=== PATIENT | female | born 2000 | race Caucasian/White ===

== ENCOUNTER 2018-07-03 16:07 | Emergency (ER) | payer OTHER ==
[~2018-07-03] VITALS: Ht 170.2 cm; Wt 63.5 kg
[2018-07-03 16:20] VITALS: BP 131/71
--- NOTE | 2018-07-03 16:47 | RAD ---
Examination: ELBOW RIGHT 2V History: RIGHT ELBOW XRAY 3 VIEWS - INJURED BY HARD OBJECT Comparison/Correlation: None Findings: Total of 4 images of the right elbow were obtained. Joint spaces are normal. No acute fracture or bony destruction. Soft tissues are unremarkable. No joint effusion. No degenerative change. Impression: Normal right elbow x-ray exam. Electronically signed by: Jaylan Carlson MD (07/03/2018 4:44 PM) [id number]
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
== END 2018-07-03 17:05 | disposition home or self-care (01) ==
LOC: ER 16:07
DX: S50.01XA Contusion of right elbow, initial encounter (principal); W22.8XXA Striking against or struck by other objects, initial encounter; Y93.89 Activity, other specified; Y92.89 Other specified places as the place of occurrence of the external cause; Y99.8 Other external cause status
CPT/HCPCS: 73070; 99283

== ENCOUNTER 2018-09-05 13:33 | Emergency (ER) | payer OTHER ==
[~2018-09-05] VITALS: Ht 167.6 cm; Wt 81.6 kg
--- NOTE | 2018-09-05 14:02 | PHYS DOC ---
Past History Past Medical History: No Pertinent History Past Surgical History: No Surgical History Alcohol Use: None Drug Use: None Adult General Chief Complaint Chief Complaint: SHORTNESS OF BREATH [facility] HPI 18-year-old female presents with 2 day history of shortness of breath. The patient has known allergies and reactive airway disease. For the last several days she has had more difficulty as the pollen counts and very high. Her cough has become productive of greenish sputum. She feels that she is more short of breath the last 2 days despite using her albuterol twice a day. She uses 2 puffs. The patient has not had steroids for reactive airway disease exacerbations in the past. She's never been hospitalized. She is eating and drinking normally. She had a fever at home 2 days ago, but this is resolved. Review of Systems Review of Systems Constitutional: Fever[] Eyes: Denies change in visual acuity, redness, or eye pain [] HENT: nasal congestion [] Respiratory: Cough with shortness of breath [] Cardiovascular: No additional information not addressed in HPI [] GI: Denies abdominal pain, nausea, vomiting, bloody stools or diarrhea [] : Denies dysuria or hematuria [] Musculoskeletal: Denies back pain or joint pain [] Integument: Denies rash or skin lesions [] Neurologic: Denies headache, focal weakness or sensory changes [] Endocrine: Denies polyuria or polydipsia [] All other systems were reviewed and found to be within normal limits, except as documented in this note. Allergies Allergies Allergies Coded Allergies Type Severity Reaction Last Updated Verified No Known Drug Allergies 07/03/18 No Physical Exam Physical Exam Constitutional: Well developed, well nourished, no acute distress, non-toxic appearance. [] HENT: Normocephalic, atraumatic, bilateral external ears normal, oropharynx moist, no oral exudates, nose congested, nose ring in place. [] Eyes: PERRLA, EOMI, conjunctiva normal, no discharge. [] Neck: Normal range of motion, no tenderness, supple, no stridor. [] Cardiovascular:Heart rate regular rhythm, no murmur [] Lungs & Thorax: Coughing. Bilateral breath diminished with prolonged expiratory phase. No obvious wheezing.[] Abdomen: Bowel sounds normal, soft, no tenderness, no masses, no pulsatile masses. [] Skin: Warm, dry, no erythema, no rash. [] Back: No tenderness, no CVA tenderness. [] Extremities: No tenderness, no cyanosis, no clubbing, ROM intact, no edema. [] Neurologic: Alert and oriented X 3, normal motor function, normal sensory function, no focal deficits noted. [] Psychologic: Affect normal, judgement normal, mood normal. [] EKG EKG [] Radiology/Procedures Radiology/Procedures [] Impressions: CHEST PA LATERAL Clinical indications: chest pain since yesterday, no known injury. Shortness of breath. COMPARISON: None available. Findings: No acute lung infiltrate or pleural effusion or pulmonary edema or lung mass or pneumothorax is seen. The heart size, pulmonary vasculature, mediastinum and both ty are unremarkable. The osseous structures appear intact. Impression: No acute radiographic abnormality is seen. Electronically signed by: Charisse Olivier MD (09/05/2018 2:23 PM) [id number] DICTATED AND SIGNED BY: CHARISSE OLIVIER MD DATE: 09/05/18 1428 CC: SID ROSADO DO; PCP,UNKNOWN ~ Course & Med Decision Making Course & Med Decision Making Pertinent Labs and Imaging studies reviewed. (See chart for details) The patient's chest x-ray is negative for pneumonia. She appears to be having an exacerbation of her reactive airway disease. I have given her a duoneb treatment in the ED as well as 125 of Solu-Medrol. I will discharge her on an additional 3 days of prednisone. She is stable for discharge at this time. [] Dragon Disclaimer Dragon Disclaimer This electronic medical record was generated, in whole or in part, using a voice recognition dictation system. Departure Departure: Impression: Primary Impression: Reactive airway disease with acute exacerbation Disposition: 01 HOME, SELF-CARE Condition: STABLE Referrals: PCP,UNKNOWN (PCP) Patient Instructions: Asthma, Adult, [id number] Scripts Albuterol Sulfate (VENTOLIN HFA INHALER) 18 Gm Hfa.aer.ad 1-2 PUFF IH PRN Q4HRS PRN for FOR ASTHMA, #1 INHALER 0 Refills Please also dispense an appropriately sized spacer. Gerneric substitution of albuterol MDI is authorized. Prov: SID ROSADO DO 09/05/18 Prednisone (PREDNISONE) 10 Mg Tablet 50 MG PO DAILY for reactive airway disease for 3 Days, #15 TAB Prov: SID ROSADO DO 09/05/18 Problem Qualifiers Primary Impression: Reactive airway disease with acute exacerbation Asthma severity: mild Asthma persistence: intermittent Qualified Codes: J45.21 - Mild intermittent asthma with (acute) exacerbation SID ROSADO DO Sep 05, 2018 14:02
[2018-09-05 14:24] LABS: BASO % 1 % (0-3); EOS # 0.3 x10^3/uL (0.0-0.7); EOS % 5 % (0-3); HEMATOCRIT 41.5 % (36.0-47.0); HEMOGLOBIN 13.9 g/dL (12.0-15.5); LYMPH # 2.2 x10^3/uL (1.0-4.8); LYMPH % 32 % (24-48); MEAN CORPUSCULAR HEMOGLOBIN 30 pg (25-35); MEAN CORPUSCULAR HGB CONC 34 g/dL (31-37); MEAN CORPUSCULAR VOLUME 90 fL (79-100); MONO % 14 % (0-9); NEUT # 3.4 x10^3uL (1.8-7.7); NEUT % 49 % (31-73); PLATELET COUNT 298 x10^3/uL (140-400); RED BLOOD COUNT 4.61 x10^6/uL (3.50-5.40); RED CELL DISTRIBUTION WIDTH 13.8 % (11.5-14.5); WHITE BLOOD COUNT 6.8 x10^3/uL (4.0-11.0)
--- NOTE | 2018-09-05 14:25 | RAD ---
CHEST PA LATERAL Clinical indications: chest pain since yesterday, no known injury. Shortness of breath. COMPARISON: None available. Findings: No acute lung infiltrate or pleural effusion or pulmonary edema or lung mass or pneumothorax is seen. The heart size, pulmonary vasculature, mediastinum and both ty are unremarkable. The osseous structures appear intact. Impression: No acute radiographic abnormality is seen. Electronically signed by: Gael Olivier MD (09/05/2018 2:23 PM) [facility]
[2018-09-05] MEDS ORDERED: IPRATRPIUM/ALBUTEROL 0.5/2.5MG 3 ML NEBU. NEB ONE (14:30)
[2018-09-05] MEDS ORDERED: methylPREDNISolone SOD SUCC PF 125 MG/2 ML VIAL. IV ONE (14:30)
[2018-09-05 14:35] VITALS: BP 129/78
[2018-09-05 14:35] LABS: CALCIUM 9.3 mg/dL (8.5-10.1); CREATININE 0.8 mg/dL (0.6-1.0); GFR 91.4; TOTAL BILIRUBIN 0.3 mg/dL (0.2-1.0); TOTAL PROTEIN 8.1 g/dL (6.4-8.2)
[2018-09-05] MEDS ORDERED: PRED-220 PO (14:37)
[2018-09-05] MEDS ORDERED: ALBU2.5V8 IH (14:37)
== END 2018-09-05 14:40 | disposition home or self-care (01) ==
LOC: ER 13:33
DX: J45.21 Mild intermittent asthma with (acute) exacerbation (principal)
CPT/HCPCS: 36415; 71046; 80053; 85025; 94640; 96374; 99285; J2930; J7620

== ENCOUNTER 2018-11-24 20:33 | Emergency (ER) | payer OTHER ==
[~2018-11-24] VITALS: Ht 167.6 cm; Wt 81.6 kg
[2018-11-24 20:33] VITALS: BP 138/68
[~2018-11-24 20:33] MED LIST: ALBU2.5V8 IH; PRED-220 PO
[2018-11-24] MEDS ORDERED: IPRATRPIUM/ALBUTEROL 0.5/2.5MG 3 ML NEBU. NEB ONE (21:15)
[2018-11-24] MEDS ORDERED: DEXAMETHASONE 4 MG TABLET PO ONE (21:15)
[2018-11-24] MEDS ORDERED: PRED20TA PO (21:55)
--- NOTE | 2018-11-24 21:55 | PHYS DOC ---
Past History Past Medical History: Asthma, Other Past Surgical History: No Surgical History Smoking: Non-smoker Alcohol Use: None Drug Use: None Adult General Chief Complaint Chief Complaint: SHORTNESS OF BREATH HPI HPI Patient is a 18 year old female who presents with shortness of air and cough for 3 days. She has a history of asthma and has been taking her albuterol inhaler every 2 hours and it is still not helping. She has had a nonproductive cough, worse at night. She is been sweating profusely but has not taken her temperature. She denies chest pain. Several people at work and had pneumonia. She has tried Mucinex, NyQuil, and DayQuil but they have not helped. Tylenol has temporarily feel better. She has had a headache and sinus drainage. Denies . Review of Systems Review of Systems Constitutional: Denies fever or reports chills Eyes: Denies redness or eye pain HENT: Reports nasal congestion and sore throat Respiratory: Reports cough and shortness of breath Cardiovascular: Denies chest pain or palpitations GI: Denies abdominal pain, nausea, or vomiting : Denies dysuria or hematuria Musculoskeletal: Denies back pain or joint pain Integument: Denies rash or skin lesions Neurologic: Reports headache, denies focal weakness or sensory changes Complete systems were reviewed and found to be within normal limits, except as documented in this note. Current Medications Current Medications Current Medications Medications (Trade) Dose Ordered Sig/Heladio Start Time Stop Time Status Last Admin Dose Admin Albuterol/ Ipratropium (Duoneb) 3 ml 1X ONCE 11/24/18 21:15 11/24/18 21:19 DC 11/24/18 21:15 3 ML Dexamethasone (Decadron) 10 mg 1X ONCE 11/24/18 21:15 11/24/18 21:19 DC 11/24/18 21:42 10 MG Allergies Allergies Allergies Coded Allergies Type Severity Reaction Last Updated Verified No Known Drug Allergies 07/03/18 No Physical Exam Physical Exam Constitutional: Well developed, well nourished, no acute distress, non-toxic appearance HENT: Normocephalic, atraumatic, oropharynx moist, throat is erythematous signs of postnasal drip, no tonsillar exudates Eyes: PERRL, EOMI, conjunctiva normal, no discharge Neck: Normal range of motion, no tenderness, supple Cardiovascular: Heart rate normal, regular rhythm Lungs & Thorax: Bilateral breath sounds clear to auscultation, no wheezing, nonproductive cough present Abdomen: Soft, no tenderness Skin: Warm, dry, no erythema, no rash Back: No tenderness, no CVA tenderness Extremities: No tenderness, ROM intact, no edema Neurologic: Alert and oriented X 3, normal motor function, normal sensory function, no focal deficits noted Psychologic: Affect normal, judgement normal, mood normal Current Patient Data Vital Signs Vital Signs Date Time Temp Pulse Resp B/P (MAP) Pulse Ox O2 Delivery O2 Flow Rate FiO2 11/24/18 21:18 97 Room Air EKG EKG [] Radiology/Procedures Radiology/Procedures PROCEDURE: CHEST PA & LATERAL PA and lateral chest. HISTORY: Cough, congestion PA and lateral views were taken of the chest. Lungs are clear. Heart is normal in size without heart failure. There is no pleural effusion. IMPRESSION: 1. No acute chest disease. Electronically signed by: Maxx Rogers MD (11/24/2018 10:01 PM) [facility][] Course & Med Decision Making Course & Med Decision Making Pertinent Imaging studies reviewed. (See chart for details) ' Ms. Blair is a 18-year-old female with past medical history of asthma who presents with shortness of air and cough for 3 days. She has had a nonproductive cough, shortness of breath, and has been "sweating profusely" the past 3 days. She has been taking her albuterol inhaler every 2 hours and it does not seem to be helping as long as it normally does. She has had a runny nose and a headache. Several people at her work at pneumonia. On physical exam her lungs are clear to auscultation bilaterally. No wheezes. Throat is erythematous with signs of post nasal drip. Chest x-ray is negative for pneumonia. She is giving a DuoNeb which she says helped the tightness in her chest. She most likely has bronchitis which will be treated with prednisone. Patient stable for discharge with outpatient follow-up with PCP. Discussed find ings and plan with patient and family, who acknowledge understanding and agreement. [] Dragon Disclaimer Dragon Disclaimer This electronic medical record was generated, in whole or in part, using a voice recognition dictation system. Departure Departure: Impression: Primary Impression: Bronchitis Disposition: HOME, SELF-CARE Condition: STABLE Referrals: PCP,UNKNOWN (PCP) Patient Instructions: Acute Bronchitis, Iyci-lt-Dqyy Scripts Prednisone (PREDNISONE) 20 Mg Tablet 2 TAB PO DAILY for Bronchitis, #8 TAB Start this medication tomorrow, Saturday11/25/18 Prov: TOMAS SANDOVAL DO 11/24/18 TOMSA SANDOVAL DO Nov 24, 2018 21:55
--- NOTE | 2018-11-24 22:04 | RAD ---
PA and lateral chest. HISTORY: Cough, congestion PA and lateral views were taken of the chest. Lungs are clear. Heart is normal in size without heart failure. There is no pleural effusion. IMPRESSION: 1. No acute chest disease. Electronically signed by: Maxx Rogers MD (11/24/2018 10:01 PM) [facility]
[2018-11-25] MEDS ORDERED: BUTA1CAP31 PO (15:19)
[2018-11-25] MEDS ORDERED: ONDA4TAB7 PO (15:19)
== END 2018-11-24 22:19 | disposition home or self-care (01) ==
LOC: ER 20:33
DX: J45.909 Unspecified asthma, uncomplicated (principal)
CPT/HCPCS: 71046; 94640; 99284; J7620; J8540

== ENCOUNTER 2018-11-25 12:05 | Emergency (ER) | payer OTHER ==
[~2018-11-25] VITALS: Ht 165.1 cm; Wt 85.3 kg
[~2018-11-25 12:05] MED LIST changes: +PRED20TA PO
[2018-11-25] MEDS ORDERED: IV NORMAL SALINE 1,000ML 1,000 ML IV SCH (12:19)
--- NOTE | 2018-11-25 12:34 | PHYS DOC ---
Past History Past Medical History: Asthma, Other Past Surgical History: No Surgical History Smoking: Non-smoker Alcohol Use: None Drug Use: None Adult General Chief Complaint Chief Complaint: HEADACHE HPI HPI Patient is a 18-year-old female who presents with complaint of headache that started about 20-30 minutes prior to arrival. She states that her whole head hurts from the front all the way to the back. She admits to nausea but has had no vomiting. She complains of photophobia. She states the headache is worsened with change of position. There has been no fever.[] Review of Systems Review of Systems Constitutional: Denies fever or chills [] Eyes: Denies change in visual acuity, redness, or eye pain [] Respiratory: Denies cough or shortness of breath [] Cardiovascular: No additional information not addressed in HPI [] GI: Denies abdominal pain. Admits to nausea without vomiting or diarrhea [] Neurologic: Complains of headache without focal weakness or sensory changes [] All other systems were reviewed and found to be within normal limits, except as documented in this note. Current Medications Current Medications Current Medications Medications (Trade) Dose Ordered Sig/Heladio Start Time Stop Time Status Last Admin Dose Admin Nalbuphine HCl (Nubain) 10 mg 1X ONCE 11/25/18 12:55 11/25/18 12:56 Ondansetron HCl (Zofran) 4 mg 1X ONCE 11/25/18 12:55 11/25/18 12:56 Sodium Chloride 1,000 ml @ 1,000 mls/hr Q1H 11/25/18 12:19 11/25/18 13:18 Allergies Allergies Allergies Coded Allergies Type Severity Reaction Last Updated Verified No Known Drug Allergies 07/03/18 No Physical Exam Physical Exam Constitutional: Well developed, well nourished, no acute distress, non-toxic appearance. [] HENT: Normocephalic, atraumatic, bilateral external ears normal, oropharynx moist, no oral exudates, nose normal. [] Eyes: PERRLA, EOMI, conjunctiva normal, no discharge. [] Neck: Normal range of motion, no tenderness, supple, no meningismus. [] Cardiovascular:Heart rate regular rhythm, no murmur [] Lungs & Thorax: Bilateral breath sounds clear to auscultation [] Abdomen: Bowel sounds normal, soft, no tenderness. [] Skin: Warm, dry, no erythema, no rash. [] Extremities: No tenderness, no cyanosis, no clubbing, ROM intact. [] Neurologic: Alert and oriented X 3, no focal deficits noted. [] EKG EKG [] Radiology/Procedures Radiology/Procedures [] Course & Med Decision Making Course & Med Decision Making Pertinent Labs and Imaging studies reviewed. (See chart for details) [] Dragon Disclaimer Dragon Disclaimer This electronic medical record was generated, in whole or in part, using a voice recognition dictation system. Departure Departure: Impression: Primary Impression: Acute headache Disposition: HOME, SELF-CARE Condition: STABLE Referrals: PCP,UNKNOWN (PCP) Patient Instructions: Headache, FAQs Scripts Butalbital/Aspirin/Caffeine (FIORINAL 50-325-40 MG CAPSULE) 1 Each Capsule 1 EACH PO Q6HRS PRN for HEADACHE, #12 CAP Prov: OMKAR BARRETO Jr. DO 11/25/18 Ondansetron Hcl (ZOFRAN) 4 Mg Tablet 4 MG PO Q6HRS PRN for NAUSEA, #10 TAB Prov: OMKAR BARRETO Jr. DO 11/25/18 Problem Qualifiers Primary Impression: Acute headache Headache type: unspecified Intractability: not intractable Qualified Codes: R51 - Headache OMKAR BARRETO Jr. DO Nov 25, 2018 12:34
[2018-11-25 12:48] LABS: BASO % 0 % (0-3); EOS % 0 % (0-3); HEMATOCRIT 41.2 % (36.0-47.0); HEMOGLOBIN 13.7 g/dL (12.0-15.5); LYMPH # 0.9 x10^3/uL (1.0-4.8); LYMPH % 8 % (24-48); MEAN CORPUSCULAR HEMOGLOBIN 30 pg (25-35); MEAN CORPUSCULAR HGB CONC 33 g/dL (31-37); MEAN CORPUSCULAR VOLUME 91 fL (79-100); MONO # 0.4 x10^3/uL (0.0-1.1); MONO % 4 % (0-9); NEUT # 9.6 x10^3uL (1.8-7.7); NEUT % 88 % (31-73); PLATELET COUNT 351 x10^3/uL (140-400); RED BLOOD COUNT 4.53 x10^6/uL (3.50-5.40); RED CELL DISTRIBUTION WIDTH 13.8 % (11.5-14.5); WHITE BLOOD COUNT 10.9 x10^3/uL (4.0-11.0)
[2018-11-25 12:55] LABS: CALCIUM 9.8 mg/dL (8.5-10.1); CREATININE 0.7 mg/dL (0.6-1.0); GFR 106.7; POTASSIUM 3.9 mmol/L (3.5-5.1); TOTAL BILIRUBIN 0.3 mg/dL (0.2-1.0)
[2018-11-25] MEDS ORDERED: ONDANSETRON PF 4 MG/2 ML VIAL. IV ONE (12:55)
[2018-11-25] MEDS ORDERED: NALBUPHINE 10 MG/ML AMPUL. IV ONE (12:55)
[2018-11-25 15:09] LABS: BILIRUBIN,URINE NEG (NEG); CLARITY,URINE HAZY; COLOR,URINE AMBER; GLUCOSE,URINE NEG (NEG); NITRITE,URINE NEG (NEG); UROBILINOGEN,URINE 0.2 mg/dL (0.2 mg/dL)
[2018-11-25 15:10] LABS: BACTERIA,URINE FEW /HPF (0-FEW); SQUAMOUS EPITHELIAL CELL,UR OCC /LPF; WBC,URINE OCC /HPF (0-4)
[2018-11-25] MEDS ORDERED: BUTA1CAP31 PO (15:19)
[2018-11-25] MEDS ORDERED: ONDA4TAB7 PO (15:19)
[2018-11-25 15:30] VITALS: BP 131/70
== END 2018-11-25 15:31 | disposition home or self-care (01) ==
LOC: ER 12:05
DX: R51 Headache (principal); J45.909 Unspecified asthma, uncomplicated
CPT/HCPCS: 36415; 80053; 81001; 81025; 85025; 96374; 96375; 99284; J2300; J2405; J7030

== ENCOUNTER 2019-10-16 13:39 | Emergency (ER) | payer OTHER ==
[~2019-10-16] VITALS: Ht 165.1 cm; Wt 98.6 kg
[~2019-10-16 13:39] MED LIST changes: +BUTA1CAP31 PO; +ONDA4TAB7 PO
[2019-10-16 13:52] VITALS: BP 141/85
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
== END 2019-10-16 14:50 | disposition home or self-care (01) ==
LOC: ER 13:39
DX: S13.4XXA Sprain of ligaments of cervical spine, initial encounter (principal); J45.909 Unspecified asthma, uncomplicated; V49.88XA Car occupant (driver) (passenger) injured in other specified transport accidents, initial encounter; Y93.89 Activity, other specified; Y92.488 Other paved roadways as the place of occurrence of the external cause; Y99.8 Other external cause status
CPT/HCPCS: 70450; 81025; 99284-25